=== PATIENT | female | born 1965 | race Two or more races ===

== ENCOUNTER 2025-02-06 13:06 | Emergency (ER) | payer MEDICAID ==
[~2025-02-06] VITALS: Ht 157.5 cm; Wt 67.7 kg
[2025-02-06 13:09] VITALS: TEMP 97.8
--- NOTE | 2025-02-06 13:46 | ED.PDOC ---
Eye-HPI HPI Comments 59 y/o F, presents to the ED for CC of eye problem. Patient states, she was sent by her frame stylist for a further evaluation d/t dilated left pupil; examination of the eye was unremarkable showing 20/20 vision and an eye pressure of 19mmHg. Patient relays, she woke up this morning (02/06/25) with left-eye irritation as if something was stuck in her eye, patient comments using boyfriends eye drops to try an alleviate symptoms with no relief. Patient denies vision changes, disorientation, speech difficulty, or headache. No other symptoms or modifying factors are present at this time. Chief Complaint: Eye Problem Time Seen by MD: 13:30 Reviewed Notes: Nurses Notes, Medications, Allergies Allergies: Coded Allergies: NO KNOWN ALLERGIES (Unverified , 02/06/25) Information Source: Patient, Relative (Child) Mode of Arrival: Ambulatory Timing: Hours Duration: Since onset Prehospital treatment: None Eye Location: Left Lids: Normal Conjunctiva: Normal Cornea: Normal Pupils: Unequal ENT Ear Exam: Normal Nose: Normal Sinuses: Normal Oropharynx: Normal Onset: Chemical Exposure Throat Exposed to: None History of: None Associated signs and symptoms: None Past Medical History PAST MEDICAL HISTORY: Denies Surgical History: Denies all surgeries ROUTE SERVICE MANAGER History: Denies all ROUTE SERVICE MANAGER Hx Family History Family History: Unknown Social History Smoker: Non-Smoker Alcohol: Denies ETOH Use Drugs: Denies Drug Use Lives In: Home Constitutional: denies: chills, diaphoresis, fatigue, fever, malaise, sweats, weakness, others EENTM: denies: blurred vision, double vision, ear bleeding, ear discharge, ear drainage, ear pain, ear ringing, eye pain, eye redness, hearing loss, mouth pain, mouth swelling, nasal discharge, nose bleeding, nose congestion, nose pain, photophobia, tearing, throat pain, throat swelling, voice changes, others Respiratory: denies: cough, hemoptysis, orthopnea, SOB at rest, shortness of breath, SOB with excertion, stridor, wheezing, others Cardiovascular: denies: chest pain, dizzy spells, diaphoresis, Dyspnea on exertion, edema, irregular heart beat, left arm pain, lightheadedness, palpitations, PND, syncope, others Gastrointestinal: denies: abdomen distended, abdominal pain, blood streaked bowels, constipated, diarrhea, dysphagia, difficulty swallowing, hematemesis, melena, nausea, poor appetite, poor fluid intake, rectal bleeding, rectal pain, vomiting, others Genitourinary: denies: abnormal vagina bleeding, burning, dyspareunia, dysuria, flank pain, frequency, hematuria, incontinence, pain, , vagina discharge, urgency, others Neurological: denies: dizziness, fainting, headache, left sided numbness, left sided weakness, numbness, paresthesia, pre-existing deficit, right sided numbness, right sided weakness, seizure, speech problems, tingling, tremors, weakness, others Musculoskeletal: denies: back pain, gout, joint pain, joint swelling, muscle pain, muscle stiffness, neck pain, others Integumetry: denies: bruises, change in color, change in hair/nails, dryness, laceration, lesions, lumps, rash, wounds, others Allergic/Immunocompromised: denies: Difficulty Healing, Frequent Infections, Hives, Itching, others Hematologic/Lymphatic: denies: anemia, blood clots, easy bleeding, easy bruising, swollen glands, others Endocrine: denies: excessive hunger, excessive sweating, excessive thirst, excessive urination, flushing, intolerance to cold, intolerance to heat, unexplained weight gain, unexplained weight loss, others Psychiatric: denies: anxiety, bipolar disorder, depression, hopeless, panic disorder, schizophrenia, sleepless, suicidal, others All Other Systems: Reviewed and Negative Physical Exam General Appearance: No Apparent Distress, Normal HEENT: Normal ENT Inspection, Pharynx Normal, Other (DIALATED/UNREACTIVE LEFT PUPIL) Neck: Full Range of Motion, Non-Tender, Normal, Normal Inspection Respiratory: Chest Non-Tender, Lungs Clear, No Accessory Muscle Use, No Respiratory Distress, Normal Breath Sounds Cardiovascular: No Edema, No Murmur, No Gallop, Normal Peripheral Pulses, Regular Rate/Rhythm Breast Exam: Deferred Gastrointestinal: No Organomegaly, Non Tender, No Pulsatile Mass, Normal Bowel Sounds, Soft Genitalia: Deferred Pelvic: Deferred Rectal: Deferred Extremities: No calf tenderness, Normal capillary refill, Normal inspection, Normal range of motion, Non-tender, No pedal edema Musculoskeletal : Apperance: Normal Neurologic: Alert, autism motor specialist II-XII nml as Tested, No Motor Deficits, Normal Affect, Normal Mood, No Sensory Deficits Cerebellar Function: Normal Reflexes: Normal Skin: Dry, Normal Color, Warm Lymphatic: No Adenopathy Was a procedure done? Was a procedure done?: No EENT DIFF Eye: Iritis/Uveitis X-Ray, Labs, Meds, VS Vital Signs Date Time Temp Pulse Resp B/P (MAP) Pulse Ox O2 Delivery O2 Flow Rate FiO2 02/06/25 16:30 91 20 158/91 (113) 98 02/06/25 13:09 97.8 95 18 165/137 99 97.8 [facility] [id number] [place] [id number] Ph: [phone] DIAGNOSTIC IMAGING Diagnostic Imaging Report : [id number] Signed PATIENT: CAESAR PONCE ACCT: [id number] UNIT: [id number] : 1965 LOC: ER ROOM / BED: / AGE / SEX: 59 / F ADM STATUS: REG ER SERVICE 1334 ORDERING PHYSICIAN: JESSICA GRIFFITHS MD PROCEDURE(s): HWOCT - HEAD WITHOUT CONTRAST REASON: left pupil unreactive ORDER NUMBER(s): [id number], ACCESSION NUMBER(s): [id number] CLINICAL INFORMATION: Left pupil unreactive. TECHNIQUE: Axial imaging was obtained through the brain without contrast. Coronal and sagittal reformatted images were obtained, reviewed, and stored. Images were reviewed in brain and bone windows. All CT scans at this medical facility are performed using dose modulation techniques as appropriate to a performed exam including the following: Automated exposure control was utilized; adjustment of the MA and/or KV according to patient size; and use of iterative reconstruction technique. CTDIvol = 54.47 mGy DLP = 1072.03 mGy-cm COMPARISON: None FINDINGS: There is no acute intracranial hemorrhage. No mass effect or midline shift. The ventricles and sulci are within normal limits in size for age. Basal cisterns are patent. The calvarium is unremarkable. There is complete opacification of the left maxillary sinus. [id number] mucosal thickening of the right maxillary sinus. Mastoid air cells are clear. IMPRESSION: 1. No CT evidence of acute intracranial abnormality. 2. 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 ATED BY: KOBE CHANDRA DO DICTATED DATE/TIME: 02/06/251409 SIGNED BY: KOBE CHANDRA DO SIGNED DATE/TIME: 02/06/251409 CC: Time of 1ST Reevaluation: 14:00 Reevaluation 1ST: Unchanged Patient Education/Counseling: Diagnosis, Treatment Family Education/Counseling: Diagnosis, Treatment SEPSIS Sepsis Screen Date sepsis recognized/suspect: Feb 06, 2025 Time Sepsis recognized/suspect: 1313 Recent Procedure: No On Antibiotic Therapy: No Respiratory Rate >20: No Heart Rate >90: Yes Temp<36 C (96.8 F) or >38.3 C: No SBP <90 or MAP <65 mmHG: No New Acute Mental Status Change: No Is the patient on CPAP, BIPAP,: No Physician Orders Head Without Contrast (02/06/25 13:34) Vital Signs Date Time Temp Pulse Resp B/P (MAP) Pulse Ox O2 Delivery O2 Flow Rate FiO2 02/06/25 16:30 91 20 158/91 (113) 98 02/06/25 13:09 97.8 95 18 165/137 99 97.8 Departure 1 Departure Time of Disposition: 17:10 (Patient's CT scan is benign. Patient has normal intra-ocular pressures obtained at her outpatient eye doctor. In my judgment Patient's dilated eyes likely 2nd eyedrops the patient use this morning. We will discharge patient home with outpatient follow up We will discharge patient home with outpatient follow up.) Impression: Primary Impression: Dilated pupil Disposition: 01 HOME / SELF CARE / HOMELESS Condition: Stable Discharged With: Self Critical Care Note Critical Care Time?: No Stability Stability form required: No Heart Score Heart Score: Heart Score Response (Comments) Value History N/A 0 EKG N/A 0 Age N/A 0 Risk Factors N/A 0 Troponin N/A 0 Total 0 I personally scribed for JESSICA GRIFFITHS MD ([email or web address]) on 02/06/25 at 13:46. Electronically submitted by Dian Anne [email or web address]). I personally scribed for JESSICA GRIFFITHS MD ([email or web address]) on 02/06/25 at 14:21. Electronically submitted by Dian Anne [email or web address]). JESSICA GRIFFITHS MD Feb 06, 2025 13:46
--- NOTE | 2025-02-06 14:12 | DVH ---
CLINICAL INFORMATION: Left pupil unreactive. TECHNIQUE: Axial imaging was obtained through the brain without contrast. Coronal and sagittal reformatted images were obtained, reviewed, and stored. Images were reviewed in brain and bone windows. All CT scans at this medical facility are performed using dose modulation techniques as appropriate to a performed exam including the following: Automated exposure control was utilized; adjustment of the MA and/or KV according to patient size; and use of iterative reconstruction technique. CTDIvol = 54.47 mGy DLP = 1072.03 mGy-cm COMPARISON: None FINDINGS: There is no acute intracranial hemorrhage. No mass effect or midline shift. The ventricles and sulci are within normal limits in size for age. Basal cisterns are patent. The calvarium is unremarkable. There is complete opacification of the left maxillary sinus. [id number] mucosal thickening of the right maxillary sinus. Mastoid air cells are clear. IMPRESSION: 1. No CT evidence of acute intracranial abnormality. 2. 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
[2025-02-06 16:30] VITALS: BP 158/91; PULSE 91; RESP 20; O2SAT 98
== END 2025-02-06 17:26 | disposition home or self-care (01) ==
LOC: ER 13:06
DX: H57.04 Mydriasis (principal)
CPT/HCPCS: 70450